=== PATIENT | female | born 1950 | race Native Hawaiian/Other Pacific Islander ===

== ENCOUNTER 2020-09-06 16:47 | Inpatient (IN) | payer OTHER ==
[~2020-09-06] VITALS: Ht 154.9 cm; Wt 73.6 kg
[2020-09-06 22:03] VITALS: BP 103/48; TEMP 98.9; Ht 154.9 cm; Wt 73.6 kg
[2020-09-07 19:59] VITALS: BP 144/85; TEMP 97.3
[2020-09-08 03:34] VITALS: BP 131/55; TEMP 96.6
[2020-09-08 08:00] VITALS: BP 134/56; TEMP 97.4
[2020-09-08 16:00] VITALS: BP 135/78; TEMP 97.9
[2020-09-08 20:00] VITALS: BP 117/54; TEMP 98.7
[2020-09-09 04:00] VITALS: BP 125/67; TEMP 97.9
[2020-09-27 08:00] VITALS: BP 152/74; TEMP 97.6
[2020-09-27 20:00] VITALS: BP 107/51; TEMP 98.7
[2020-09-28 08:00] VITALS: BP 122/61; TEMP 98.1
[2020-09-28 20:00] VITALS: BP 118/56; TEMP 98.3
[2020-09-29 04:00] VITALS: BP 121/61; TEMP 97.9
[2020-09-29 08:00] VITALS: BP 129/70; TEMP 97.6
[2020-09-29 15:45] LABS: PLATELET COUNT 234 K/uL (152-353)
[2020-09-29 15:46] LABS: POTASSIUM 4.1 mmol/L (3.6-5.2)
[2020-09-29 20:20] VITALS: BP 128/53; TEMP 96.8
[2020-09-30 08:00] VITALS: BP 121/67; TEMP 98.8
[2020-09-30 20:00] VITALS: BP 111/50; TEMP 96.9
[2020-10-01 08:00] VITALS: BP 123/47; TEMP 97.4
[2020-10-01 20:10] VITALS: BP 123/57; TEMP 98.1
[2020-10-02 08:00] VITALS: BP 137/54; TEMP 97.4
[2020-10-02 20:00] VITALS: BP 131/64; TEMP 97.5
[2020-10-03 08:00] VITALS: BP 115/41; TEMP 97.9
[2020-10-03 20:00] VITALS: BP 121/52; TEMP 98.5
[2020-10-04 08:00] VITALS: BP 132/71; TEMP 99.2
[2020-10-04 20:00] VITALS: BP 109/54; TEMP 98.3
[2020-10-05 08:00] VITALS: BP 140/66; TEMP 97.9
[2020-10-05 20:00] VITALS: BP 103/43; TEMP 98.2
[2020-10-06 08:00] VITALS: BP 115/48; TEMP 98.3
[2020-10-06 20:00] VITALS: BP 140/62; TEMP 98.1
[2020-10-07 08:00] VITALS: BP 128/70; TEMP 97.9
[2020-10-07 19:00] VITALS: BP 146/63; TEMP 97.3
[2020-10-08 08:00] VITALS: BP 145/66; TEMP 97.7
[2020-10-08 20:00] VITALS: BP 124/60; TEMP 97.3
[2020-10-09 08:00] VITALS: BP 126/72; TEMP 98.3
[2020-10-09 20:00] VITALS: BP 111/75; TEMP 97.5
[2020-10-10 07:56] VITALS: BP 119/61; TEMP 97.5
[2020-10-10 20:00] VITALS: BP 131/64; TEMP 96.2
[2020-10-11 08:00] VITALS: BP 118/58; TEMP 98.4
[2020-10-11 19:49] VITALS: BP 125/72; TEMP 97.9
[2020-10-12 08:00] VITALS: BP 115/49; TEMP 98.2
== END 2020-10-12 14:15 | DRG 56 ==
LOC: SWING 16:47 → MED/SURG 21:58
PROVIDERS: ADMIT Internal Medicine; ATTEND Internal Medicine
DX: I69.251 Hemiplegia and hemiparesis following other nontraumatic intracranial hemorrhage affecting right dominant side (principal); Z48.811 Encounter for surgical aftercare following surgery on the nervous system; I69.120 Aphasia following nontraumatic intracerebral hemorrhage; G93.49 Other encephalopathy; J96.00 Acute respiratory failure, unspecified whether with hypoxia or hypercapnia; Z43.0 Encounter for attention to tracheostomy; Z43.1 Encounter for attention to gastrostomy; M62.81 Muscle weakness (generalized); R27.0 Ataxia, unspecified; E11.65 Type 2 diabetes mellitus with hyperglycemia; Z74.1 Need for assistance with personal care; R26.81 Unsteadiness on feet; I69.398 Other sequelae of cerebral infarction; I69.193 Ataxia following nontraumatic intracerebral hemorrhage; I69.191 Dysphagia following nontraumatic intracerebral hemorrhage; I69.920 Aphasia following unspecified cerebrovascular disease; I10 Essential (primary) hypertension; I69.192 Facial weakness following nontraumatic intracerebral hemorrhage; M54.5 Low back pain
CPT/HCPCS: 36415; 80048; 85027; 87077; 87081; 87186; 87635; 94640; 94760; J1815; U0003

== ENCOUNTER 2020-10-12 16:10 | Inpatient (IN) | payer OTHER | END 2020-10-24 08:00 | disposition still patient (30) | LOC: PAVC 16:10 | PROVIDERS: ADMIT Internal Medicine; ATTEND Internal Medicine | DX: I61.0 Nontraumatic intracerebral hemorrhage in hemisphere, subcortical (principal); I69.320 Aphasia following cerebral infarction; M62.81 Muscle weakness (generalized); R27.8 Other lack of coordination; Z74.1 Need for assistance with personal care; R26.81 Unsteadiness on feet; R13.12 Dysphagia, oropharyngeal phase; R48.8 Other symbolic dysfunctions | CPT/HCPCS: 36415; 80053; 80061; 82306; 82607; 82728; 83036; 83540; 83630; 84443; 85027; 87015; 87045; 87077; 87081; 87186; 87324; 87328; 87329; 87449; 87899; G0283-GP ==

== ENCOUNTER 2020-10-13 00:52 | Outpatient (CLI) | payer OTHER ==
[2020-10-13 01:39] LABS: PLATELET COUNT 273 K/uL (152-353)
[2020-10-13 03:17] LABS: POTASSIUM 3.8 mmol/L (3.6-5.2)
== END 2020-10-13 19:18 | disposition home or self-care (01) ==
LOC: LAB 00:52
PROVIDERS: ATTEND Internal Medicine
DX: E11.9 Type 2 diabetes mellitus without complications (principal); I63.9 Cerebral infarction, unspecified
CPT/HCPCS: 36415; 80053; 80061; 82306; 82607; 82728; 83036; 83540; 84443; 85027; 87077; 87081; 87186

== ENCOUNTER 2020-10-24 09:00 | Inpatient (IN) | payer OTHER | END 2020-11-24 13:49 | disposition still patient (30) | LOC: PAVC 09:00 | PROVIDERS: ADMIT Internal Medicine; ATTEND Internal Medicine | DX: I61.0 Nontraumatic intracerebral hemorrhage in hemisphere, subcortical (principal); I69.320 Aphasia following cerebral infarction; M62.81 Muscle weakness (generalized); R27.8 Other lack of coordination; Z74.1 Need for assistance with personal care; R26.81 Unsteadiness on feet; R13.12 Dysphagia, oropharyngeal phase; R48.8 Other symbolic dysfunctions | CPT/HCPCS: 87493; G0283-GP ==

== ENCOUNTER 2020-10-26 14:58 | Outpatient (CLI) | payer OTHER | END 2020-10-26 19:25 | disposition home or self-care (01) | LOC: RAD 14:58 | PROVIDERS: ATTEND Internal Medicine | DX: Z43.1 Encounter for attention to gastrostomy (principal) ==

== ENCOUNTER → 2020-10-27 | Outpatient (CLI) | payer OTHER | LOC: LAB 23:30 | PROVIDERS: ATTEND Internal Medicine | DX: A04.72 Enterocolitis due to Clostridium difficile, not specified as recurrent (principal) | CPT/HCPCS: 87493 ==